=== PATIENT | female | born 1940 | race Two or more races ===

== ENCOUNTER 2017-11-10 12:24 | Outpatient (CLI) | payer OTHER | END 2017-11-10 12:32 | disposition home or self-care (01) | LOC: RAD 501 12:24 | DX: M54.5 Low back pain (principal); M25.511 Pain in right shoulder; M25.512 Pain in left shoulder; M70.61 Trochanteric bursitis, right hip; M70.62 Trochanteric bursitis, left hip ==

== ENCOUNTER 2019-11-18 23:54 | Emergency (ER) | payer OTHER ==
[~2019-11-18] VITALS: Ht 154.9 cm; Wt 63.5 kg
[2019-11-19] MEDS ORDERED: CRESTOR20 MG PO (00:36)
[2019-11-19] MEDS ORDERED: CALAN SR120 MG PO (00:36)
[2019-11-19] MEDS ORDERED: ASPIR 8181 MG PO (00:36)
== END 2019-11-19 13:07 | disposition home or self-care (01) ==
LOC: ER 23:54
DX: S52.532A Colles' fracture of left radius, initial encounter for closed fracture (principal); S76.211A Strain of adductor muscle, fascia and tendon of right thigh, initial encounter; R07.89 Other chest pain; W01.198A Fall on same level from slipping, tripping and stumbling with subsequent striking against other object, initial encounter; Y93.89 Activity, other specified; Y92.018 Other place in single-family (private) house as the place of occurrence of the external cause; Y99.8 Other external cause status

== ENCOUNTER 2020-03-11 11:27 | Outpatient (CLI) | payer OTHER ==
[~2020-03-11 11:27] MED LIST: ASPIR 8181 MG PO; CALAN SR120 MG PO; CRESTOR20 MG PO
== END 2020-03-11 11:31 | disposition home or self-care (01) ==
LOC: RAD 11:27
PROVIDERS: ATTEND Orthopaedic Surgery
DX: M25.551 Pain in right hip (principal); M25.552 Pain in left hip

== ENCOUNTER 2023-02-01 10:42 | Outpatient (CLI) | payer OTHER | END 2023-02-01 10:48 | disposition home or self-care (01) | LOC: RAD 10:42 | PROVIDERS: ATTEND Orthopaedic Surgery | DX: M25.522 Pain in left elbow (principal); M79.641 Pain in right hand; M79.642 Pain in left hand; M25.572 Pain in left ankle and joints of left foot; M25.551 Pain in right hip; M25.552 Pain in left hip ==

== ENCOUNTER 2023-02-08 09:40 | Outpatient (CLI) | payer OTHER | END 2023-02-08 09:41 | disposition home or self-care (01) | LOC: LAB 09:40 | PROVIDERS: ATTEND Orthopaedic Surgery | DX: M85.9 Disorder of bone density and structure, unspecified (principal); E83.42 Hypomagnesemia; E56.1 Deficiency of vitamin K; E88.89 Other specified metabolic disorders; M81.8 Other osteoporosis without current pathological fracture ==

== ENCOUNTER 2024-10-19 04:10 | Inpatient (IN) | payer OTHER ==
[~2024-10-19] VITALS: Ht 170.2 cm; Wt 81.6 kg
--- NOTE | 2024-10-19 04:22 | NUR ---
SE RECIBE PTE ALERTA Y ORIENTADA EN AMBULANCIA LA CUAL REFIERE [facility] POR FX DE CADERA DEL LADO LT. PTE ACEPTADA POR DR. PRETTY ANTHONY. SE MIDEN S/V A PTE Y SE UBICA.
[2024-10-19] MEDS ORDERED: 0.9 % SODIUM CHLORIDE 1,000 ML IV STA (05:50)
--- NOTE | 2024-10-19 05:58 | NUR ---
PTE FEMENINA EVALUADA POR . RN VELARDE ORIENTA SOBRE ORDENES DE TX REFIERE COMPRENDER. COLECTA MUESTRAS DE LABORATORIOS Y CANALIZA VENA BAJO MEDIDAS ASEPTICAS. ADMINISTRA LIQUIDOS INTRAVENOSOS, ELVIRA ORDEN MEDICA. SE NOTIFICA A RADIOLOGIA PARA XRAY. SE REALIZA EKG.
[2024-10-19 06:28] LABS: HEMATOCRIT 42.9 % (36.0-45.00); HEMOGLOBIN 14.4 g/dL (12.0-15.00); MEAN CELL VOLUME 90.2 fL (80.00-100.00); MEAN CORPUSCULAR HEMOGLOBIN 30.3 pg (27.00-32.0); MEAN CORPUSCULAR HGB CONC 33.6 g/dl (32.0-36.0); PLATELET COUNT 207 K/uL (150-450); RED BLOOD COUNT 4.76 M/uL (4.00-6.00); RED CELL DISTRIBUTION WIDTH 13.2 % (11.5-14.5)
[2024-10-19 06:35] LABS: INR 0.99; PARTIAL THROMBOPLASTIN TIME 27.5 SECONDS (22.0-34.0); PROTHROMBIN TIME 10.8 SECONDS (9.0-11.5)
[2024-10-19 06:40] LABS: ALBUMIN 3.4 gm/dL (3.4-5.0); BILIRUBIN TOTAL 0.39 mg/dL (0.3-1.2); CALCIUM 9.4 mg/dL (8.5-10.1); CREATININE SERUM 0.64 mg/dL (0.55-1.02); GFR 88.62; GLOBULINA 3.9 G/DL (2.4-3.5); POTASSIUM 4.01 mEq/L (3.5-5.1); TOTAL PROTEIN 7.3 gm/dL (6.4-8.2)
[2024-10-19 10:22] LABS: URINE APPEARANCE Clear; URINE BILIRRUBIN Negative (NEGATIVE); URINE BLOOD NHT; URINE COLOR Yellow; URINE KETONE Negative (NEGATIVE); URINE LEUKOCYTE Negative; URINE NITRATE Negative; URINE PROTEIN Trace (NEGATIVE)
[2024-10-19 10:27] LABS: URINE BACTERIA 95.4 uL (0.0-1933); URINE RBC 60.9 uL (0.0-20.8); URINE WBC 5.3 uL (0.0-23.2)
[2024-10-19] MEDS ORDERED: KETOROLAC TROMETHAMINE 30 MG VIAL IU ONE (10:30)
[2024-10-19] MEDS ORDERED: KETOROLAC TROMETHAMINE 30 MG VIAL ONE (10:34)
[2024-10-19 10:44] LABS: URINE GLUCOSE 100 MG/DL (NEGATIVE)
[2024-10-19] MEDS ORDERED: VERAPAMIL HCL 180 MG CAP24H.PEL PO SCH (16:51)
[2024-10-19] MEDS ORDERED: FAMOTIDINE/PF 20 MG in 0.9 % SODIUM CHLORIDE 8 ML IV PUSH SCH (16:51)
[2024-10-19] MEDS ORDERED: MEPERIDINE HCL/PF 50 MG/ML VIAL IM PRN (17:00)
[2024-10-19] MEDS ORDERED: 0.9 % SODIUM CHLORIDE 1,000 ML IV SCH (17:00)
[2024-10-19] MEDS ORDERED: VERAPAMIL HCL 80 MG TABLET PO ONE (17:05)
[2024-10-19] MEDS ORDERED: FAMOTIDINE/PF 20 MG/2 ML VIAL ONE (17:06)
[2024-10-19 18:00] VITALS: BP 126/71; O2SAT 95
[2024-10-20 02:37] VITALS: BP 122/68; O2SAT 94
[2024-10-20 08:00] VITALS: BP 132/74; O2SAT 95
[2024-10-20] MEDS ORDERED: MEPERIDINE HCL/PF 25 MG/ML VIAL IV PRN (18:30)
[2024-10-20 19:56] VITALS: BP 147/67; O2SAT 98
[2024-10-21 01:13] VITALS: BP 125/72; O2SAT 94
[2024-10-21 05:00] VITALS: BP 160/69; O2SAT 97
[2024-10-21 08:00] VITALS: BP 153/72; O2SAT 95
[2024-10-21] MEDS ORDERED: CEFTRIAXONE SODIUM 2,000 MG VIAL IV SCH (10:00)
[2024-10-21 10:42] LABS: HEMATOCRIT 46.6 % (36.0-45.00); MEAN CELL VOLUME 92.2 fL (80.00-100.00); MEAN CORPUSCULAR HEMOGLOBIN 29.7 pg (27.00-32.0); MEAN CORPUSCULAR HGB CONC 32.3 g/dl (32.0-36.0); PLATELET COUNT 210 K/uL (150-450); RED BLOOD COUNT 5.06 M/uL (4.00-6.00); RED CELL DISTRIBUTION WIDTH 13.6 % (11.5-14.5)
[2024-10-21 11:48] LABS: CALCIUM 8.7 mg/dL (8.5-10.1); CREATININE SERUM 0.56 mg/dL (0.55-1.02); GFR 103.39; POTASSIUM 4.63 mEq/L (3.5-5.1)
[2024-10-21] MEDS ORDERED: CEFTRIAXONE SODIUM 2,000 MG VIAL ONE (16:50)
[2024-10-21] MEDS ORDERED: VANCOMYCIN HCL 1,000 MG VIAL ONE (17:12)
[2024-10-21] MEDS ORDERED: ONDANSETRON 4 MG TAB.RAPDIS PO PRN (19:00)
[2024-10-21] MEDS ORDERED: MEPERIDINE HCL/PF 50 MG/ML VIAL IM PRN (19:00)
[2024-10-21] MEDS ORDERED: ONDANSETRON HCL 2 MG/ML VIAL IV PRN (19:00)
[2024-10-21] MEDS ORDERED: PROMETHAZINE HCL 50 MG/ML AMPUL IM PRN (19:00)
[2024-10-21] MEDS ORDERED: SODIUM CHLORIDE 0.45 % 1,000 ML IV SCH (19:00)
[2024-10-21] MEDS ORDERED: VANCOMYCIN HCL 1,000 MG VIAL IR ONE (19:30)
[2024-10-21] MEDS ORDERED: ACETAMINOPHEN 325 MG TABLET PO SCH (21:00)
[2024-10-22] MEDS ORDERED: PROMETHAZINE HCL 25 MG/ML AMPUL ONE (00:23)
[2024-10-22] MEDS ORDERED: PROMETHAZINE HCL 50 MG/ML AMPUL IM ONE (00:25)
[2024-10-22] MEDS ORDERED: MEPERIDINE HCL 50 MG/ML AMPUL IM ONE (00:25)
[2024-10-22] MEDS ORDERED: ACETAMINOPHEN 325 MG TABLET PO ONE (00:34)
[2024-10-22 03:08] VITALS: BP 141/70; O2SAT 100
[2024-10-22 07:42] LABS: HEMATOCRIT 38.3 % (36.0-45.00); HEMOGLOBIN 12.6 g/dL (12.0-15.00); MEAN CELL VOLUME 91.1 fL (80.00-100.00); MEAN CORPUSCULAR HEMOGLOBIN 30.1 pg (27.00-32.0); PLATELET COUNT 161 K/uL (150-450); RED CELL DISTRIBUTION WIDTH 13.4 % (11.5-14.5)
[2024-10-22] MEDS ORDERED: PROMETHAZINE HCL 50 MG/ML AMPUL IV PRN (08:15)
[2024-10-22] MEDS ORDERED: MEPERIDINE HCL/PF 50 MG/ML VIAL IM PRN (08:15)
[2024-10-22 08:18] LABS: CALCIUM 8.1 mg/dL (8.5-10.1); CREATININE SERUM 0.54 mg/dL (0.55-1.02); GFR 107.82; POTASSIUM 4.53 mEq/L (3.5-5.1)
[2024-10-22] MEDS ORDERED: RIVAROXABAN 10 MG TAB PO SCH (09:00)
[2024-10-22] MEDS ORDERED: CEFTRIAXONE SODIUM 2,000 MG in 0.9 % SODIUM CHLORIDE 100 ML IV SCH (09:00)
[2024-10-22] MEDS ORDERED: PANTOPRAZOLE SODIUM 40 MG TABLET.DR PO SCH (09:00)
[2024-10-22 09:40] VITALS: BP 125/77; O2SAT 97
[2024-10-22 16:47] VITALS: BP 97/66; O2SAT 96
[2024-10-22 22:26] VITALS: BP 110/69; O2SAT 98
[2024-10-23 03:34] VITALS: BP 135/66
[2024-10-23 08:00] VITALS: BP 142/87
[2024-10-23 08:44] LABS: HEMATOCRIT 34.5 % (36.0-45.00); HEMOGLOBIN 11.5 g/dL (12.0-15.00); MEAN CELL VOLUME 89.5 fL (80.00-100.00); MEAN CORPUSCULAR HEMOGLOBIN 29.9 pg (27.00-32.0); MEAN CORPUSCULAR HGB CONC 33.4 g/dl (32.0-36.0); PLATELET COUNT 162 K/uL (150-450); RED BLOOD COUNT 3.85 M/uL (4.00-6.00); RED CELL DISTRIBUTION WIDTH 13.3 % (11.5-14.5)
[2024-10-23] MEDS ORDERED: SENNA/DOCUSATE SODIUM 1 TAB TABLET PO SCH (09:00)
[2024-10-23] MEDS ORDERED: OxyCODONE HCL/APAP UD (PERCOCET) PO PRN (09:45)
[2024-10-23] MEDS ORDERED: MORPHINE SULFATE 2 MG/ML SYRINGE IV PRN (14:45)
[2024-10-23 16:00] VITALS: BP 112/70; O2SAT 96
[2024-10-24] VITALS: BP 90/62; O2SAT 96
[2024-10-24 08:10] VITALS: BP 120/83; O2SAT 94
[2024-10-24] MEDS ORDERED: TRAMADOL HCL 50 MG TABLET PO STA (12:53)
== END 2024-10-24 13:21 | DRG 522 ==
LOC: ER 04:10 → SURH 17:16
PROVIDERS: Orthopaedic Surgery; ADMIT Student in an Organized Health Care Education/Training Program; ATTEND Student in an Organized Health Care Education/Training Program
PROC: 0QQ Lower Bones, Repair (ICD-10-PCS; 2024-10-21)
PROC: 0MBM0ZZ Excision of Left Hip Bursa and Ligament, Open Approach (ICD-10-PCS; 2024-10-21)
PROC: 0SRS0JZ Replacement of Left Hip Joint, Femoral Surface with Synthetic Substitute, Open Approach (ICD-10-PCS; principal; 2024-10-21 18:15)
DX: S72.032A Displaced midcervical fracture of left femur, initial encounter for closed fracture (principal); S72.092A Other fracture of head and neck of left femur, initial encounter for closed fracture; M70.62 Trochanteric bursitis, left hip; M16.12 Unilateral primary osteoarthritis, left hip; I10 Essential (primary) hypertension; W13.3XXA Fall through floor, initial encounter

== ENCOUNTER 2024-11-20 09:57 | Outpatient (CLI) | payer OTHER | END 2024-11-20 10:00 | disposition home or self-care (01) | LOC: RAD 09:57 | PROVIDERS: ATTEND Orthopaedic Surgery | DX: S72.032D Displaced midcervical fracture of left femur, subsequent encounter for closed fracture with routine healing (principal); S32.010D Wedge compression fracture of first lumbar vertebra, subsequent encounter for fracture with routine healing; X58.XXXD Exposure to other specified factors, subsequent encounter ==

== ENCOUNTER 2025-01-08 08:03 | Outpatient (CLI) | payer OTHER ==
[2025-01-08 09:46] LABS: ALBUMIN 3.4 gm/dL (3.4-5.0); BILIRUBIN TOTAL 0.29 mg/dL (0.3-1.2); CALCIUM 8.7 mg/dL (8.5-10.1); CREATININE SERUM 0.47 mg/dL (0.55-1.02); GFR 126.55; GLOBULINA 3.3 G/DL (2.4-3.5); MAGNESIUM 2.1 mg/dL (1.8-2.4); POTASSIUM 4.28 mEq/L (3.5-5.1); TOTAL PROTEIN 6.7 gm/dL (6.4-8.2)
[2025-01-10 09:06] LABS: CALCIUM IONIZED 4.8 mg/dL (4.5-5.6)
== END 2025-01-08 08:06 | disposition home or self-care (01) ==
LOC: LAB 08:03
PROVIDERS: ATTEND Orthopaedic Surgery
DX: E55.9 Vitamin D deficiency, unspecified (principal); M85.9 Disorder of bone density and structure, unspecified; E56.1 Deficiency of vitamin K; E21.3 Hyperparathyroidism, unspecified; E88.89 Other specified metabolic disorders; M81.8 Other osteoporosis without current pathological fracture

== ENCOUNTER 2025-02-06 11:29 | Outpatient (CLI) | payer OTHER | END 2025-02-06 11:33 | disposition home or self-care (01) | LOC: RAD 11:29 | PROVIDERS: ATTEND Orthopaedic Surgery | DX: M25.571 Pain in right ankle and joints of right foot (principal); M25.572 Pain in left ankle and joints of left foot; M25.512 Pain in left shoulder ==